=== PATIENT | female | born 1990 | race Caucasian/White ===

== ENCOUNTER 2020-08-30 07:02 | Inpatient (IN) ==
[2020-08-30] MEDS ORDERED: Ondansetron 4 MG/2 ML VIAL IVP ONE (07:07)
[2020-08-30] MEDS ORDERED: Ipratropium/Albuterol Neb 3 ML IH ONE (07:07)
[2020-08-30] MEDS ORDERED: 0.9 % Sodium Chloride 1,000 ML ONE (07:36)
[2020-08-30] MEDS ORDERED: 0.9 % Sodium Chloride 1,000 ML IVC ONE (07:41)
[2020-08-30 07:45] LABS: Basophils % 0.2 %; Eosinophils % 0.1 %; Hematocrit 37.4 % (35.3-44.9); Hemoglobin 11.1 g/dL (11.5-15.4); Immature Granulocytes % 0.6 % (0-4); Lymphocytes # 2.3 K/mcL (0.6-4.6); Lymphocytes % 26.1 %; Mean Corpuscular HGB Conc 29.7 g/dL (31.6-35.5); Mean Corpuscular Hemoglobin 21.6 pg (28.0-33.3); Mean Corpuscular Volume 72.9 fL (83.0-100.0); Mean Platelet Volume 9.9 fL (9.4-12.4); Monocytes # 0.3 K/mcL (0.0-1.3); Neutrophils # 6.1 K/mcL (1.6-8.9); Platelet Count 316 K/mcL (140-400); Red Blood Count 5.13 M/mcL (3.82-4.97); Red Cell Distribution Width 17.8 % (11.5-14.5); White Blood Count 8.7 K/mcL (4.3-11.1)
[2020-08-30 07:59] LABS: Alanine Aminotransferase 19 Units/L (7-52); Albumin 3.8 g/dL (3.5-5.7); Alkaline Phosphatase 69 Units/L (34-104); Aspartate Amino Transferase 42 Units/L (13-39); BUN/Creatinine Ratio 16 (6-26); Bilirubin,Direct 0.1 mg/dL (0.0-0.2); Bilirubin,Indirect 0.1 mg/dL (0.0-1.0); Bilirubin,Total 0.2 mg/dL (0.3-1.0); Blood Urea Nitrogen 9 mg/dL (6-20); Calcium 9.3 mg/dL (8.6-10.3); Carbon Dioxide 23 mEq/L (23-29); Chloride 99 mEq/L (98-107); Globulin 3.7 g/dL (2.4-3.5); Glucose 219 mg/dL (70-105); Lactate Dehydrogenase 295 Units/L (140-271); Osmolality,Calculated 285 (280-300); Phosphorous 3.7 mg/dL (2.7-4.5); Potassium 3.7 mEq/L (3.5-5.1); Sodium 135 mEq/L (136-145); Total Protein 7.5 g/dL (6.4-8.9); Troponin I < 0.03 ng/mL (< 0.04); eGFR For African Americans > 60 (> 60); eGFR For Non-African Americans > 60 (> 60)
[2020-08-30 08:16] LABS: Ferritin 127 ng/mL (10-120)
[2020-08-30 08:48] LABS: Adenovirus Not Detected (Not Detect); Bordetella Pertussis Not Detected (Not Detect); Chlamydophila pneumoniae Not Detected (Not Detect); Coronavirus 229E Not Detected (Not Detect); Coronavirus HKU1 Not Detected (Not Detect); Coronavirus NL63 Not Detected (Not Detect); Coronavirus OC43 Not Detected (Not Detect); Human Metapneumovirus Not Detected (Not Detect); Human Rhinovirus/Enterovirus Not Detected (Not Detect); Influenza A Subtype 2009 H1 Not Detected (Not Detect); Influenza B Not Detected (Not Detect); Mycoplasma pneumoniae Not Detected (Not Detect); Parainfluenza Virus 1 Not Detected (Not Detect); Parainfluenza Virus 2 Not Detected (Not Detect); Parainfluenza Virus 3 Not Detected (Not Detect); Parainfluenza Virus 4 Not Detected (Not Detect); Respiratory Syncytial Virus Not Detected (Not Detect)
[2020-08-30 08:49] LABS: SARS-CoV-2 DETECTED (Not Detect)
[2020-08-30] MEDS ORDERED: cefTRIAXone 1,000 MG in Water for inj. (sterile) 10 ML IVP ONE (08:50)
[2020-08-30] MEDS ORDERED: Azithromycin 500 MG in 0.9 % Sodium Chloride 250 ML IVPB ONE (08:50)
[2020-08-30] MEDS ORDERED: *HR* LORazepam 2 MG/ML VIAL IVP ONE ×2 (08:50→12:12)
[2020-08-30 09:23] LABS: C-Reactive Protein 128 mg/L (Less than 10)
[2020-08-30 11:01] LABS: Bacteria,Urine Few per hpf (None-Few); Bilirubin,Urine Negative (Negative); Blood,Urine Moderate (Negative); Budding Yeast,Urine Few per hpf (None Seen); Clarity,Urine Turbid (Clear); Color,Urine Yellow (Yellow); Glucose,Urine (UA) Normal (Normal); Hyaline Casts,Urine Few per lpf (None Seen); Ketones,Urine Negative (Negative); Leukocyte Esterase,Urine Moderate (Negative); Mucus,Urine Few per lpf (None-Few); Nitrite,Urine Negative (Negative); PH,Urine 6.5 pH Units (5.0-8.0); Protein,Urine 100 mg/dL (Neg-Trace); Specific Gravity,Urine 1.026 (1.010-1.025); Squamous Epithelial Cell,Urine Moderate per hpf (None-Few); Urobilinogen,Urine Normal (Normal)
[2020-08-30] MEDS ORDERED: Naloxone 0.4 MG/ML INJ IVP PRN (11:15)
[2020-08-30] MEDS ORDERED: 0.9 % Sodium Chloride 1,000 ML IVC SCH (11:15)
[2020-08-30] MEDS ORDERED: ALPRAZolam 0.5 MG TABLET PO PRN (11:19)
[2020-08-30] MEDS ORDERED: Remdesivir 200 MG in 0.9 % Sodium Chloride 100 ML IVPB ONE (15:00)
[2020-08-30] MEDS: Gabapentin 400 MG CAPSULE PO SCH (21:33)
[2020-08-30] MEDS: ALPRAZolam 1 MG TABLET PO PRN (21:33)
[2020-08-30] MEDS: Benzonatate 100 MG CAPSULE PO PRN (21:33)
[2020-08-31] MEDS: Melatonin 3 MG TABLET PO PRN ×2 (02:29→20:36)
[2020-08-31] MEDS: Acetaminophen 325 MG TABLET PO PRN ×2 (05:57→20:36)
[2020-08-31] MEDS: ALPRAZolam 1 MG TABLET PO PRN ×2 (05:57→15:11)
[2020-08-31] MEDS: Benzonatate 100 MG CAPSULE PO PRN ×3 (05:58→20:36)
[2020-08-31] MEDS ORDERED: *HR* Enoxaparin 40 MG/0.4 ML SYRINGE SQ SCH (06:00)
[2020-08-31 06:03] LABS: Basophils % 0.1 %; Eosinophils % 0.1 %; Hematocrit 33.6 % (35.3-44.9); Immature Granulocytes % 0.8 % (0-4); Lymphocytes # 2.5 K/mcL (0.6-4.6); Lymphocytes % 28.9 %; Mean Corpuscular HGB Conc 29.8 g/dL (31.6-35.5); Mean Corpuscular Hemoglobin 21.9 pg (28.0-33.3); Mean Corpuscular Volume 73.5 fL (83.0-100.0); Monocytes # 0.3 K/mcL (0.0-1.3); Neutrophils # 5.7 K/mcL (1.6-8.9); Platelet Count 348 K/mcL (140-400); Red Blood Count 4.57 M/mcL (3.82-4.97); Red Cell Distribution Width 17.8 % (11.5-14.5); Segmented Neutrophils % 66.1 %; White Blood Count 8.6 K/mcL (4.3-11.1)
[2020-08-31 06:12] LABS: INR 1.2
[2020-08-31 06:36] LABS: Alanine Aminotransferase 16 Units/L (7-52); Albumin 3.5 g/dL (3.5-5.7); Albumin/Globulin Ratio 1.1 (1.1-2.2); Alkaline Phosphatase 61 Units/L (34-104); Aspartate Amino Transferase 30 Units/L (13-39); BUN/Creatinine Ratio 16 (6-26); Bilirubin,Total 0.2 mg/dL (0.3-1.0); Blood Urea Nitrogen 8 mg/dL (6-20); Calcium 8.7 mg/dL (8.6-10.3); Carbon Dioxide 23 mEq/L (23-29); Chloride 101 mEq/L (98-107); Globulin 3.3 g/dL (2.4-3.5); Glucose 132 mg/dL (70-105); Osmolality,Calculated 280 (280-300); Potassium 3.9 mEq/L (3.5-5.1); Sodium 135 mEq/L (136-145); Total Protein 6.8 g/dL (6.4-8.9); eGFR For African Americans > 60 (> 60); eGFR For Non-African Americans > 60 (> 60)
[2020-08-31] MEDS: Saline Nasal Spray 44 ML BOTTLE NS SCH ×4 (09:13→22:22)
[2020-08-31] MEDS: cefTRIAXone 1,000 MG in Water for inj. (sterile) 10 ML IVP SCH (09:13)
[2020-08-31] MEDS: Multivit/Ca/Min/Fe/FA 1 TAB TABLET PO SCH (09:14)
[2020-08-31] MEDS: Dexamethasone Sodium Phos/PF 10 MG/ML VIAL IVP SCH (09:14)
[2020-08-31] MEDS: Furosemide 20 MG/2 ML VIAL IVP SCH (09:14)
[2020-08-31] MEDS: Gabapentin 400 MG CAPSULE PO SCH ×3 (09:14→20:35)
[2020-08-31] MEDS: Azithromycin 500 MG in 0.9 % Sodium Chloride 250 ML IVPB SCH (09:15)
[2020-08-31 10:49] LABS: C-Reactive Protein 107 mg/L (Less than 10); Ferritin 107 ng/mL (10-120); Lactate Dehydrogenase 415 Units/L (140-271)
[2020-08-31] MEDS: Ipratropium 1 PUFF INHALER IH SCH ×5 (10:49→23:42)
[2020-08-31] MEDS: Artificial Tears SOLN 15 ML BOTTLE BOTH EYES SCH ×2 (11:55→20:38)
[2020-08-31] MEDS: Chlorhexidine Rinse 15 ML MOUTHWASH MM SCH ×2 (11:56→22:23)
[2020-08-31] MEDS: Remdesivir 100 MG in 0.9 % Sodium Chloride 100 ML IVPB SCH (15:14)
[2020-08-31] MEDS: *HR* Enoxaparin 40 MG/0.4 ML SYRINGE SQ SCH (18:04)
[2020-08-31] MEDS ORDERED: *HR* LORazepam 2 MG/ML VIAL IVP ONE (21:58)
[2020-09-01] MEDS: Ondansetron 4 MG/2 ML VIAL IVP PRN (00:55)
[2020-09-01] MEDS: ALPRAZolam 1 MG TABLET PO PRN ×2 (00:55→20:24)
[2020-09-01] MEDS: Ipratropium 1 PUFF INHALER IH SCH ×6 (04:17→23:52)
[2020-09-01 04:31] LABS: ABG Base Excess 1 mEq/L (-2 to 3); ABG HCO3 27 mEq/L (21-27); ABG Oxygen Saturation 89 % (95-98); ABG PCO2 48 mmHg (35-45); ABG PH 7.37 pH Units (7.32-7.45); ABG PO2 58 mmHg (85-104); ABG TCO2 29 mEq/L (20-26)
[2020-09-01 05:32] LABS: INR 1.3; Prothrombin Time 14.9 Seconds (9.4-12.1)
[2020-09-01 05:33] LABS: Basophils % 0.3 %; Hematocrit 33.7 % (35.3-44.9); Hemoglobin 10.1 g/dL (11.5-15.4); Immature Granulocytes % 1.5 % (0-4); Lymphocytes # 2.5 K/mcL (0.6-4.6); Lymphocytes % 32.1 %; Mean Corpuscular Hemoglobin 22.3 pg (28.0-33.3); Mean Corpuscular Volume 74.6 fL (83.0-100.0); Mean Platelet Volume 10.1 fL (9.4-12.4); Monocytes # 0.6 K/mcL (0.0-1.3); Monocytes % 8.1 %; Neutrophils # 4.5 K/mcL (1.6-8.9); Nucleated Red Blood Cells 0.3 /100 WBC (0); Platelet Count 386 K/mcL (140-400); Red Blood Count 4.52 M/mcL (3.82-4.97); Red Cell Distribution Width 17.9 % (11.5-14.5); White Blood Count 7.8 K/mcL (4.3-11.1)
[2020-09-01 05:54] LABS: Alanine Aminotransferase 21 Units/L (7-52); Albumin 3.6 g/dL (3.5-5.7); Albumin/Globulin Ratio 1.1 (1.1-2.2); Alkaline Phosphatase 60 Units/L (34-104); Aspartate Amino Transferase 36 Units/L (13-39); BUN/Creatinine Ratio 33 (6-26); Bilirubin,Total 0.3 mg/dL (0.3-1.0); Blood Urea Nitrogen 15 mg/dL (6-20); Calcium 9.2 mg/dL (8.6-10.3); Carbon Dioxide 27 mEq/L (23-29); Chloride 100 mEq/L (98-107); Globulin 3.4 g/dL (2.4-3.5); Glucose 157 mg/dL (70-105); Magnesium 2.3 mg/dL (1.6-2.6); Osmolality,Calculated 290 (280-300); Phosphorous 3.9 mg/dL (2.7-4.5); Sodium 138 mEq/L (136-145); eGFR For African Americans > 60 (> 60); eGFR For Non-African Americans > 60 (> 60)
[2020-09-01] MEDS: Saline Nasal Spray 44 ML BOTTLE NS SCH ×7 (06:15→23:15)
[2020-09-01] MEDS: Pantoprazole 40 MG VIAL IVP SCH ×2 (06:23→09:07)
[2020-09-01] MEDS: *HR* Enoxaparin 40 MG/0.4 ML SYRINGE SQ SCH ×2 (06:23→18:05)
[2020-09-01] MEDS: Chlorhexidine Rinse 15 ML MOUTHWASH MM SCH ×2 (08:06→20:14)
[2020-09-01] MEDS: Artificial Tears SOLN 15 ML BOTTLE BOTH EYES SCH ×2 (08:06→20:19)
[2020-09-01] MEDS: Azithromycin 500 MG in 0.9 % Sodium Chloride 250 ML IVPB SCH (08:07)
[2020-09-01] MEDS: Dexamethasone Sodium Phos/PF 10 MG/ML VIAL IVP SCH (08:08)
[2020-09-01] MEDS: Gabapentin 400 MG CAPSULE PO SCH ×3 (08:08→20:14)
[2020-09-01] MEDS: Multivit/Ca/Min/Fe/FA 1 TAB TABLET PO SCH (08:08)
[2020-09-01] MEDS: Furosemide 20 MG/2 ML VIAL IVP SCH (08:08)
[2020-09-01] MEDS: cefTRIAXone 1,000 MG in Water for inj. (sterile) 10 ML IVP SCH (08:09)
[2020-09-01] MEDS: Sucralfate 1 GM TABLET PO SCH (16:29)
[2020-09-01] MEDS: Remdesivir 100 MG in 0.9 % Sodium Chloride 100 ML IVPB SCH (16:30)
[2020-09-01] MEDS: Venlafaxine XR (24 HR) 75 MG CAP.ER.24H PO SCH (16:38)
[2020-09-01] MEDS: Insulin LISPRO 300 UNITS/3 ML VIAL SUBQ SCH ×2 (18:33→20:15)
[2020-09-01] MEDS: Benzonatate 100 MG CAPSULE PO PRN (20:24)
[2020-09-01] MEDS: Melatonin 3 MG TABLET PO PRN (20:24)
[2020-09-01] MEDS: Acetaminophen 325 MG TABLET PO PRN (22:42)
[2020-09-02] MEDS: Ondansetron 4 MG/2 ML VIAL IVP PRN ×2 (02:05→23:12)
[2020-09-02 03:44] LABS: Basophils % 0.2 %; Eosinophils % 0.1 %; Hematocrit 32.1 % (35.3-44.9); Hemoglobin 9.5 g/dL (11.5-15.4); Immature Granulocytes % 1.5 % (0-4); Lymphocytes # 3.3 K/mcL (0.6-4.6); Lymphocytes % 29.3 %; Mean Corpuscular HGB Conc 29.6 g/dL (31.6-35.5); Mean Corpuscular Hemoglobin 21.7 pg (28.0-33.3); Mean Corpuscular Volume 73.3 fL (83.0-100.0); Mean Platelet Volume 9.5 fL (9.4-12.4); Monocytes # 0.8 K/mcL (0.0-1.3); Monocytes % 7.3 %; Platelet Count 412 K/mcL (140-400); Red Blood Count 4.38 M/mcL (3.82-4.97); Red Cell Distribution Width 17.4 % (11.5-14.5); Segmented Neutrophils % 61.6 %; White Blood Count 11.3 K/mcL (4.3-11.1)
[2020-09-02 03:57] LABS: INR 1.3; Prothrombin Time 14.7 Seconds (9.4-12.1)
[2020-09-02] MEDS: Ipratropium 1 PUFF INHALER IH SCH ×5 (03:57→20:07)
[2020-09-02 04:13] LABS: Alanine Aminotransferase 27 Units/L (7-52); Albumin 3.5 g/dL (3.5-5.7); Albumin/Globulin Ratio 1.1 (1.1-2.2); Alkaline Phosphatase 59 Units/L (34-104); Aspartate Amino Transferase 35 Units/L (13-39); BUN/Creatinine Ratio 40 (6-26); Bilirubin,Total 0.3 mg/dL (0.3-1.0); Blood Urea Nitrogen 18 mg/dL (6-20); C-Reactive Protein 53 mg/L (Less than 10); Calcium 9.2 mg/dL (8.6-10.3); Carbon Dioxide 25 mEq/L (23-29); Chloride 101 mEq/L (98-107); Globulin 3.2 g/dL (2.4-3.5); Glucose 144 mg/dL (70-105); Lactate Dehydrogenase 249 Units/L (140-271); Magnesium 2.1 mg/dL (1.6-2.6); Osmolality,Calculated 288 (280-300); Phosphorous 4.1 mg/dL (2.7-4.5); Potassium 3.7 mEq/L (3.5-5.1); Sodium 137 mEq/L (136-145); Total Protein 6.7 g/dL (6.4-8.9); eGFR For African Americans > 60 (> 60); eGFR For Non-African Americans > 60 (> 60)
[2020-09-02 04:30] LABS: Ferritin 90 ng/mL (10-120)
[2020-09-02] MEDS: *HR* Enoxaparin 40 MG/0.4 ML SYRINGE SQ SCH ×2 (04:55→17:58)
[2020-09-02] MEDS: Saline Nasal Spray 44 ML BOTTLE NS SCH ×5 (04:55→20:02)
[2020-09-02] MEDS: Insulin LISPRO 300 UNITS/3 ML VIAL SUBQ SCH ×4 (08:11→22:54)
[2020-09-02] MEDS: Multivit/Ca/Min/Fe/FA 1 TAB TABLET PO SCH (10:04)
[2020-09-02] MEDS: Sucralfate 1 GM TABLET PO SCH ×2 (10:04→16:55)
[2020-09-02] MEDS: Venlafaxine XR (24 HR) 75 MG CAP.ER.24H PO SCH (10:05)
[2020-09-02] MEDS: Gabapentin 400 MG CAPSULE PO SCH ×3 (10:05→20:02)
[2020-09-02] MEDS: Cholecalciferol (D-3) 1,000 UNIT (25MCG) TABLET PO SCH (10:05)
[2020-09-02] MEDS: Furosemide 20 MG/2 ML VIAL IVP SCH (10:05)
[2020-09-02] MEDS: Chlorhexidine Rinse 15 ML MOUTHWASH MM SCH ×2 (10:05→20:02)
[2020-09-02] MEDS: Pantoprazole 40 MG VIAL IVP SCH (10:06)
[2020-09-02] MEDS: Dexamethasone Sodium Phos/PF 10 MG/ML VIAL IVP SCH (10:06)
[2020-09-02] MEDS: cefTRIAXone 1,000 MG in Water for inj. (sterile) 10 ML IVP SCH (10:06)
[2020-09-02] MEDS: Azithromycin 500 MG in 0.9 % Sodium Chloride 250 ML IVPB SCH (10:08)
[2020-09-02] MEDS: Artificial Tears SOLN 15 ML BOTTLE BOTH EYES SCH ×2 (10:13→20:02)
[2020-09-02] MEDS: Acetaminophen 325 MG TABLET PO PRN (11:03)
[2020-09-02] MEDS: Remdesivir 100 MG in 0.9 % Sodium Chloride 100 ML IVPB SCH (15:14)
[2020-09-02] MEDS: ALPRAZolam 1 MG TABLET PO PRN (20:02)
[2020-09-02] MEDS: Melatonin 3 MG TABLET PO PRN (20:02)
[2020-09-02] MEDS: Benzonatate 100 MG CAPSULE PO PRN (20:02)
[2020-09-03] MEDS: Ipratropium 1 PUFF INHALER IH SCH ×7 (00:07→23:28)
[2020-09-03] MEDS: Saline Nasal Spray 44 ML BOTTLE NS SCH ×6 (02:23→21:10)
[2020-09-03] MEDS: *HR* Enoxaparin 40 MG/0.4 ML SYRINGE SQ SCH ×2 (05:13→17:18)
[2020-09-03 06:02] LABS: Basophils % 0.2 %; Eosinophils % 0.1 %; Hematocrit 32.4 % (35.3-44.9); Hemoglobin 9.8 g/dL (11.5-15.4); Immature Granulocytes % 1.8 % (0-4); Lymphocytes # 3.3 K/mcL (0.6-4.6); Mean Corpuscular HGB Conc 30.2 g/dL (31.6-35.5); Mean Corpuscular Hemoglobin 22.4 pg (28.0-33.3); Mean Corpuscular Volume 74.1 fL (83.0-100.0); Mean Platelet Volume 9.5 fL (9.4-12.4); Monocytes # 0.7 K/mcL (0.0-1.3); Monocytes % 6.6 %; Neutrophils # 6.2 K/mcL (1.6-8.9); Platelet Count 434 K/mcL (140-400); Red Blood Count 4.37 M/mcL (3.82-4.97); Red Cell Distribution Width 17.6 % (11.5-14.5); Segmented Neutrophils % 59.3 %; White Blood Count 10.4 K/mcL (4.3-11.1)
[2020-09-03 06:14] LABS: INR 1.2; Prothrombin Time 14.3 Seconds (9.4-12.1)
[2020-09-03 06:25] LABS: Alanine Aminotransferase 29 Units/L (7-52); Albumin 3.4 g/dL (3.5-5.7); Alkaline Phosphatase 62 Units/L (34-104); Aspartate Amino Transferase 23 Units/L (13-39); BUN/Creatinine Ratio 38 (6-26); Bilirubin,Total 0.2 mg/dL (0.3-1.0); Blood Urea Nitrogen 17 mg/dL (6-20); Calcium 9.2 mg/dL (8.6-10.3); Carbon Dioxide 25 mEq/L (23-29); Chloride 103 mEq/L (98-107); Globulin 3.3 g/dL (2.4-3.5); Glucose 140 mg/dL (70-105); Osmolality,Calculated 292 (280-300); Potassium 3.7 mEq/L (3.5-5.1); Sodium 139 mEq/L (136-145); Total Protein 6.7 g/dL (6.4-8.9); eGFR For African Americans > 60 (> 60); eGFR For Non-African Americans > 60 (> 60)
[2020-09-03 06:29] LABS: Phosphorous 3.9 mg/dL (2.7-4.5)
[2020-09-03] MEDS: Insulin LISPRO 300 UNITS/3 ML VIAL SUBQ SCH ×4 (07:10→21:08)
[2020-09-03] MEDS: Venlafaxine XR (24 HR) 75 MG CAP.ER.24H PO SCH (08:22)
[2020-09-03] MEDS: Sucralfate 1 GM TABLET PO SCH ×2 (08:22→16:06)
[2020-09-03] MEDS: Cholecalciferol (D-3) 1,000 UNIT (25MCG) TABLET PO SCH (08:22)
[2020-09-03] MEDS: Azithromycin 250 MG TABLET PO SCH (08:22)
[2020-09-03] MEDS: Furosemide 20 MG/2 ML VIAL IVP SCH (08:22)
[2020-09-03] MEDS: Multivit/Ca/Min/Fe/FA 1 TAB TABLET PO SCH (08:22)
[2020-09-03] MEDS: Gabapentin 400 MG CAPSULE PO SCH ×3 (08:22→21:09)
[2020-09-03] MEDS: cefTRIAXone 1,000 MG in Water for inj. (sterile) 10 ML IVP SCH (08:23)
[2020-09-03] MEDS: Dexamethasone Sodium Phos/PF 10 MG/ML VIAL IVP SCH (08:23)
[2020-09-03] MEDS: Chlorhexidine Rinse 15 ML MOUTHWASH MM SCH ×2 (08:23→21:10)
[2020-09-03] MEDS: Artificial Tears SOLN 15 ML BOTTLE BOTH EYES SCH ×2 (08:24→21:10)
[2020-09-03] MEDS: Remdesivir 100 MG in 0.9 % Sodium Chloride 100 ML IVPB SCH (16:07)
[2020-09-03] MEDS: ALPRAZolam 1 MG TABLET PO PRN (21:38)
[2020-09-03] MEDS: Melatonin 3 MG TABLET PO PRN (21:39)
[2020-09-04] MEDS: Acetaminophen 325 MG TABLET PO PRN (01:19)
[2020-09-04 03:19] LABS: Basophils % 0.1 %; Eosinophils % 0.1 %; Hematocrit 33.6 % (35.3-44.9); Immature Granulocytes % 2.6 % (0-4); Lymphocytes # 4.5 K/mcL (0.6-4.6); Lymphocytes % 33.1 %; Mean Corpuscular HGB Conc 29.8 g/dL (31.6-35.5); Mean Corpuscular Hemoglobin 21.7 pg (28.0-33.3); Mean Corpuscular Volume 72.9 fL (83.0-100.0); Mean Platelet Volume 9.7 fL (9.4-12.4); Monocytes # 0.9 K/mcL (0.0-1.3); Monocytes % 6.8 %; Neutrophils # 7.8 K/mcL (1.6-8.9); Platelet Count 506 K/mcL (140-400); Red Blood Count 4.61 M/mcL (3.82-4.97); Red Cell Distribution Width 17.4 % (11.5-14.5); Segmented Neutrophils % 57.3 %; White Blood Count 13.6 K/mcL (4.3-11.1)
[2020-09-04 03:38] LABS: BUN/Creatinine Ratio 42 (6-26); Blood Urea Nitrogen 19 mg/dL (6-20); C-Reactive Protein 21 mg/L (Less than 10); Calcium 9.6 mg/dL (8.6-10.3); Carbon Dioxide 25 mEq/L (23-29); Chloride 103 mEq/L (98-107); Glucose 103 mg/dL (70-105); Osmolality,Calculated 289 (280-300); Potassium 3.6 mEq/L (3.5-5.1); Sodium 138 mEq/L (136-145); eGFR For African Americans > 60 (> 60); eGFR For Non-African Americans > 60 (> 60)
[2020-09-04] MEDS: Ipratropium 1 PUFF INHALER IH SCH ×4 (04:15→16:19)
[2020-09-04] MEDS: Saline Nasal Spray 44 ML BOTTLE NS SCH ×5 (05:56→15:53)
[2020-09-04] MEDS: *HR* Enoxaparin 40 MG/0.4 ML SYRINGE SQ SCH (05:59)
[2020-09-04] MEDS: Chlorhexidine Rinse 15 ML MOUTHWASH MM SCH (08:40)
[2020-09-04] MEDS: Artificial Tears SOLN 15 ML BOTTLE BOTH EYES SCH (08:40)
[2020-09-04] MEDS: Venlafaxine XR (24 HR) 75 MG CAP.ER.24H PO SCH (08:53)
[2020-09-04] MEDS: Multivit/Ca/Min/Fe/FA 1 TAB TABLET PO SCH (08:53)
[2020-09-04] MEDS: Cholecalciferol (D-3) 1,000 UNIT (25MCG) TABLET PO SCH (08:53)
[2020-09-04] MEDS: Furosemide 20 MG/2 ML VIAL IVP SCH (08:53)
[2020-09-04] MEDS: Azithromycin 250 MG TABLET PO SCH (08:53)
[2020-09-04] MEDS: Sucralfate 1 GM TABLET PO SCH ×2 (08:53→15:53)
[2020-09-04] MEDS: Gabapentin 400 MG CAPSULE PO SCH ×2 (08:53→15:53)
[2020-09-04] MEDS: cefTRIAXone 1,000 MG in Water for inj. (sterile) 10 ML IVP SCH (08:54)
[2020-09-04] MEDS: Dexamethasone Sodium Phos/PF 10 MG/ML VIAL IVP SCH (08:54)
[2020-09-04] MEDS: Insulin LISPRO 300 UNITS/3 ML VIAL SUBQ SCH ×2 (09:00→12:43)
[2020-09-04 16:35] VITALS: BP 116/86
== END 2020-09-04 16:38 | disposition home or self-care (01) | DRG 720 ==
LOC: EMEROOARM 07:02 → 2NENU 07:02 → SUATTDRO 10:53 → 2NENU 11:27 → SUATTDRO 08-31 10:20 → 2NENU 09-02 22:59
PROVIDERS: ADMIT Internal Medicine; ATTEND Student in an Organized Health Care Education/Training Program